=== PATIENT | female | born 1970 | race Caucasian/White ===

== ENCOUNTER 2018-03-25 09:51 | Emergency (ER) | payer BC ==
[~2018-03-25] VITALS: Ht 167.6 cm; Wt 81.7 kg
--- OUTSIDE RECORDS SUMMARY | ~2018-03-25 | XMS | Encounter Summary ---
Demographics + + + | Address | [address] | | | [place] [address] | + + + | Home Phone | | + + + | Preferred Language | Unknown | + + + | Marital Status | Single | + + + | Caodaism Affiliation | Unknown | + + + | Race | Unknown | + + + | Ethnic Group | Unknown | + + + Author + + + | Author | [facility] [employer] [facility] | + + + | Organization | [facility] [employer] [facility] | + + + | Address | Unknown | + + + | Phone | Unavailable | + + + Support + + +---------+ + | Name | Relationship | Address | Phone | + + +---------+ + | Maggie Mckenna | ECON | Unknown | | + + +---------+ + Care Team Providers + +------+ + | Care Senior Analytic Consultant Name | Role | Phone | + +------+ + | Miguelangel Good | PCP | | + +------+ + Encounter Details +--------+ + + + + | Date | Type | Department | Care Team | Description | +--------+ + + + + | 01/26/ | Telephone | [facility] | Boris Pennington MD | | | 2018 | | Rheumatology [address] | | | | | [address] | [place] [address] | | | | | [place] [address] | [phone] | | | | | [phone] | | | +--------+ + + + + Social History + +-------+ +--------+------+ | Tobacco Use | Types | Packs/Day | Years | Date | | | | | Used | | + +-------+ +--------+------+ | Former Smoker | | | | | + +-------+ +--------+------+ + +---+---+---+ | Smokeless Tobacco: | | | | | Never Used | | | | + +---+---+---+ + + +---------+ + | Alcohol Use | Drinks/We | oz/Week | Comments | | | ek | | | + + +---------+ + | No | | | | + + +---------+ + + + + | Sex Assigned at | Date Recorded | | | | + + + | Not on file | | + + + as of this encounter Plan of Treatment +--------+---------+ + + + | Date | Type | Specialty | Care Team | Description | +--------+---------+ + + + | 05/01/ | Office | Rheumatology | Sergio Fish, | | | 2017 | Visit | | [address] | | | | | | [address] | | | | | | [place] [address] | | | | | | [phone] | | | | | | | | +--------+---------+ + + + as of this encounter Visit Diagnoses Not on filein this encounter"
--- OUTSIDE RECORDS SUMMARY | ~2018-03-25 | XMS | Encounter Summary ---
Demographics + + + | Address | [address] | | | [place] [address] | + + + | Home Phone | | + + + | Preferred Language | Unknown | + + + | Marital Status | Single | + + + | Rastafari Affiliation | Unknown | + + + | Race | Unknown | + + + | Ethnic Group | Unknown | + + + Author + + + | Author | [facility] [employer] | + + + | Organization | [facility] [employer] [facility] | + + + | Address | Unknown | + + + | Phone | Unavailable | + + + Support + + +---------+ + | Name | Relationship | Address | Phone | + + +---------+ + | Maggie Mckenna | ECON | Unknown | | + + +---------+ + Care Team Providers + +------+ + | Care Library Historian Name | Role | Phone | + +------+ + | Miguelangel Good | PCP | | + +------+ + Encounter Details +--------+ + + + + | Date | Type | Department | Care Team | Description | +--------+ + + + + | 02/03/ | Telephone | [facility] | Tanja Jung, | | | 2017 | | Rheumatology [address] | [address] | | | | | [address] | | | | | | [place] [address] | | | | | | [phone] | | | +--------+ + + + [...] | 05/01/ | Office | Rheumatology | Segrio Fish, | | | 2017 | Visit | | [address] | | | | | | [address] [facility] | | | | | | [place] [address] | | | | | | [phone] | | | | | | | | +--------+---------+ + + + as of this encounter Visit Diagnoses Not on filein this encounter"
--- OUTSIDE RECORDS SUMMARY | ~2018-03-25 | XMS | Encounter Summary ---
Demographics + + + | Address | [address] | | | [place] [address] | + + + | Home Phone | | + + + | Preferred Language | Unknown | + + + | Marital Status | Single | + + + | Mu-Ism Affiliation | Unknown | + + + | Race | Unknown | + + + | Ethnic Group | Unknown | + + + Author + + + | Author | [facility] [email or web address] | + + + | Organization | [facility] [employer] [facility] | + + + | Address | Unknown | + + + | Phone | Unavailable | + + + Support + + +---------+ + | Name | Relationship | Address | Phone | + + +---------+ + | Maggie Mckenna | ECON | Unknown | | + + +---------+ + Care Team Providers + +------+ + | Care Windsmith Name | Role | Phone | + +------+ + | Miguelangel Good | PCP | | + +------+ + Encounter Details +--------+ + + + + | Date | Type | Department | Care Team | Description | +--------+ + + + + | 01/26/ | Telephone | [facility] | Boris Pennington MD | | | 2018 | | Rheumatology [address] | [address] | | | | | [address] | [place] [address] | | | | | [place] [address] | [phone] | | | | | [phone] | | | +--------+ + + + [...] | 2017 | Visit | | [address] | | | | | | [address] | | | | | | [place] [address] | | | | | | [phone] | | | | | | | | +--------+---------+ + + + as of this encounter Visit Diagnoses Not on filein this encounter"
--- OUTSIDE RECORDS SUMMARY | ~2018-03-25 | XMS | Clinical Summary ---
Demographics + + + | Address | [address] | | | [place] [address] | + + + | Home Phone | | + + + | Preferred Language | Unknown | + + + | Marital Status | Unknown | + + + | Episcopalian Affiliation | Unknown | + + + | Race | Unknown | + + + | Ethnic Group | Unknown | + + + Author + + + | Author | [facility] | | | [facility] | + + + | Organization | [facility] | | | and [facility] | + + + | Address | Unknown | + + + | Phone | Unavailable | + + + Care Team Providers + +------+ + | Care Merchandising Intern Name | Role | Phone | + +------+ + PP | Unavailable | + +------+ + Allergies Not on File Current Medications Not on file Active Problems Not on file Social History + +-------+ +--------+------+ | Tobacco Use | Types | Packs/Day | Years | Date | | | | | Used | | + +-------+ +--------+------+ | Never Assessed | | | | | + +-------+ +--------+------+ + + + | Sex Assigned at | Date Recorded | | | | + + + | Not on file | | + + + Plan of Treatment + + + + + | Health Maintenance | Due Date | Last Done | Comments | + + + + + | Vaccine: | | | | | Dtap/Tdap/Td (1 - | 9 | | | | Tdap) | | | | + + + + + | Cervical Cancer | | | | | Screening (Pap) | 0 | | | + + + + + | Vaccine: Influenza | | | | | (#1) | 8 | | | + + + + + Results Not on filefrom Last 3 Months"
--- OUTSIDE RECORDS SUMMARY | ~2018-03-25 | XMS | Clinical Summary ---
Demographics + + + | Address | [address] | | | [place] [address] | + + + | Home Phone | | + + + | Preferred Language | Unknown | + + + | Marital Status | Single | + + + | Tenriism Affiliation | Unknown | + + + | Race | Unknown | + + + | Ethnic Group | Unknown | + + + Author + + + | Author | [facility] | + + + | Organization | [facility] | + + + | Address | Unknown | + + + | Phone | Unavailable | + + + Support + + +---------+ + | Name | Relationship | Address | Phone | + + +---------+ + | Maggie Mckenna | ECON | Unknown | | + + +---------+ + Care Team Providers + +------+ + | Care Track Oiler Name | Role | Phone | + +------+ + | Miguelangel GoodP | PP | | + +------+ + Allergies + + + + + + | Active Allergy | Reactions | Severity | Noted | Comments | | | | | Date | | + + + + + + | Penicillins | Other (See Comments) | | 12/20/19 | abstracted | | | | | 11 | | + + + + + + | Sulfa Antibiotics | Other (See Comments) | | 12/20/19 | abstracted | | | | | 11 | | + + + + + + Current Medications + + +---------+---------+------+------+-------+ | Prescription | Sig. | Disp. | Refills | Star | End | Statu | | | | | | t | Date | s | | | | | | Date | | | + + +---------+---------+------+------+-------+ | levothyroxine | Take 137 mcg by | | | | | Activ | | (SYNTHROID, | mouth daily. | | | | | e | | LEVOTHROID) 137 MCG | | | | | | | | tablet | | | | | | | + + +---------+---------+------+------+-------+ | | Take by mouth. | | | | | Activ | | Acetaminophen-Codein | | | | | | e | | e (TYLENOL WITH | | | | | | | | CODEINE #3 PO) | | | | | | | + + +---------+---------+------+------+-------+ | ferrous sulfate, | Take 65 mg of iron | | | | | Activ | | 65 FE, 324 (65 Fe) | by mouth 3 (three) | | | | | e | | MG EC tablet | times daily with | | | | | | | | meals. | | | | | | + + +---------+---------+------+------+-------+ | Multiple | Take 1 tablet by | | | | | Activ | | Vitamins-Minerals | mouth daily. | | | | | e | | (MULTIVITAMIN WITH | | | | | | | | MINERALS) tablet | | | | | | | + + +---------+---------+------+------+-------+ | cholecalciferol | Take 1 capsule by | 30 | 11 | /2 | 07/ | Activ | | ([facility] VIT D 5000 | mouth daily. | capsule | | /20 | 6 | e | | HIGH-POTENCY) 5000 | | | | 18 | 19 | | | units capsule | | | | | | | + + +---------+---------+------+------+-------+ Active Problems + + + | Problem | Noted Date | + + + | Intertrigo | 01/25/2018 | + + + | Breast hypertrophy | 01/25/2018 | + + + | Depression | 01/25/2018 | + + + | Saddle anesthesia | 11/28/2013 | + + + | Scoliosis | 11/28/2013 | + + + | Urinary urgency | 11/28/2013 | + + + | Urinary leakage | 11/28/2013 | + + + | Granulation tissue of vaginal cuff | 11/28/2013 | + + + | Lipoma | 11/28/2013 | + + + Encounters +--------+ + + + + | Date | Type | Specialty | Care Team | Description | +--------+ + + + + | 02/03/ | Telephone | | Tanja Jung, | | | 2017 | | | SUBSTATION DESIGN DRAFTSPERSON | | +--------+ + + + + | 01/26/ | Telephone | | Boris Pennington MD | | | 2017 | | | | | +--------+ + + + + | 01/25/ | Office | | Boris Pennington MD | Arthralgia, | | 2018 | Visit | | | unspecified joint | | | | | | (Primary Dx) | +--------+ + + + + from Last 3 Months Immunizations + + + + | Name | Dates Previously Given | Next Due | + + + + | Influenza, PF | 08/19/2016 | | | Trivalent | | | + + + + | Pneumococcal | 08/19/2016 | | | Polysaccharide | | | | 23-valent | | | + + + + Family History + + +------+ + | Medical History | Relation | Name | Comments | + + +------+ + | Arthritis | Other | | | + + +------+ + | Asthma | Other | | | + + +------+ + | Depression | Other | | | + + +------+ + | Diabetes | Other | | | + + +------+ + + +------+--------+ + | Relation | Name | Status | Comments | + +------+--------+ + | Other | | | | + +------+--------+ + Social History + +-------+ +--------+------+ | [...] on file | | + + + Last Filed Vital Signs + + + + | Vital Sign | Reading | Time Taken | + + + + | Blood Pressure | 134/90 | 01/25/2018 1:59 PM PDT | + + + + | Pulse | 80 | 01/25/2018 1:59 PM PDT | + + + + | Temperature | 36.1 C (96.9 F) | 01/25/2018 1:59 PM PDT | + + + + | Respiratory Rate | 22 | 11/30/2014 4:05 PM PDT | + + + + | Oxygen Saturation | 96% | 11/30/2014 4:05 PM PDT | + + + + | Inhaled Oxygen | - | - | | Concentration | | | + + + + | Weight | 125.3 kg (276 lb 3.2 | 01/25/2018 1:59 PM PDT | | | oz) | | + + + + | Height | 180.3 cm (5' 11") | 01/25/2018 1:59 PM PDT | + + + + | Body Mass Index | 38.52 | 01/25/2018 1:59 PM PDT | + + + + Plan of Treatment +--------+---------+ + + + | Date | Type | Specialty | Care Team | Description | +--------+---------+ + + + | 05/01/ | Office | | Sergio Fish, | | | 2017 | Visit | | [address] | | | | | [facility] | | | | | | [place] [address] | | | | | | [phone] | | | | | | | | +--------+---------+ + + + + + + + + | Health [...] + + | Vaccine: Influenza | | 08/19/2016 | | | (#1) | 8 | | | + + + + + Procedures + +--------+ + + + | Procedure Name | Priori | Date/Time | Associated Diagnosis | Comments | | | ty | | | | + +--------+ + + + | LUPUS INHIBITOR | Routin | 01/25/2018 | Arthralgia, | Results for this | | SCREEN | e | 2:47 PM | unspecified joint | procedure are in the | | | | PDT | | results section. | + +--------+ + + + | SEDIMENTATION RATE, | Routin | 01/25/2018 | Arthralgia, | Results for this | | AUTOMATED | e | 2:46 PM | unspecified joint | procedure are in the | | | | PDT | | results section. | + +--------+ + + + | C-REACTIVE PROTEIN | Routin | 01/25/2018 | Arthralgia, | Results for this | | | e | 2:46 PM | unspecified joint | procedure are in the | | | | PDT | | results section. | + +--------+ + + + | CCP ANTIBODIES IGG | Routin | 01/25/2018 | Arthralgia, | Results for this | | IGA | e | 2:46 PM | unspecified joint | procedure are in the | | | | PDT | | results section. | + +--------+ + + + | RHEUMATOID FACTOR | Routin | 01/25/2018 | Arthralgia, | Results for this | | | e | 2:46 PM | unspecified joint | procedure are in the | | | | PDT | | results section. | + +--------+ + + + | BETA 2 GLYPROTEIN 1 | Routin | 01/25/2018 | Arthralgia, | Results for this | | IGG/IGM | e | 2:46 PM | unspecified joint | procedure are in the | | | | PDT | | results section. | + +--------+ + + + | CARDIOLIPIN ANTIBODY | Routin | 01/25/2018 | Arthralgia, | Results for this | | | e | 2:46 PM | unspecified joint | procedure are in the | | | | PDT | | results section. | + +--------+ + + + | VITAMIN D 25 HYDROXY | Routin | 01/25/2018 | Arthralgia, | Results for this | | | e | 2:46 PM | unspecified joint | procedure are in the | | | | PDT | | results section. | + +--------+ + + + | TSH | Routin | 01/25/2018 | Arthralgia, | Results for this | | | e | 2:46 PM | unspecified joint | procedure are in the | | | | PDT | | results section. | + +--------+ + + + | CK | Routin | 01/25/2018 | Arthralgia, | Results for this | | | e | 2:46 PM | unspecified joint | procedure are in the | | | | PDT | | results section. | + +--------+ + + + | ANTI-DNA ANTIBODY, | Routin | 01/25/2018 | Arthralgia, | Results for this | | DOUBLE-STRANDED | e | 2:46 PM | unspecified joint | procedure are in the | | | | PDT | | results section. | + +--------+ + + + | SUPERVISOR FABRICATION AUTOANTIBODY | Routin | 01/25/2018 | Arthralgia, | Results for this | | | e | 2:46 PM | unspecified joint | procedure are in the | | | | PDT | | results section. | + +--------+ + + + | CENTROMERE B AUTOAB | Routin | 01/25/2018 | Arthralgia, | Results for this | | | e | 2:46 PM | unspecified joint | procedure are in the | | | | PDT | | results section. | + +--------+ + + + | ANTI-GIBBS ANTIBODY | Routin | 01/25/2018 | Arthralgia, | Results for this | | | e | 2:46 PM | unspecified joint | procedure are in the | | | | PDT | | results section. | + +--------+ + + + | LEANNA TITER | Routin | 01/25/2018 | Arthralgia, | Results for this | | | e | 2:46 PM | unspecified joint | procedure are in the | | | | PDT | | results section. | + +--------+ + + + | DIRECT ANTIGLOBULIN | Routin | 01/25/2018 | Arthralgia, | Results for this | | TEST | e | 2:44 PM | unspecified joint | procedure are in the | | | | PDT | | results section. | + +--------+ + + + from Last 3 Months Results Lupus Inhibitor Screen (01/25/2018 2:47 PM) + + + + + | Component | Value | Ref Range | Performed At | + + + + + | PROTIME,PATIENT | 10.0Comment: Reference | s | [facility] | | | range: 9.6 to 11.5 | | | + + + + + | PT,PATIENT/CTL MIX | 10.1Comment: Reference | s | [facility] | | | range: 9.6 to 11.5 | | | + + + + + | 1 HR INCUB PT 1:1 CAMP TENDER | NIYComment: Testing Not | s | [facility] | | | Indicated | | | + + + + + | THROMBIN | 16.1Comment: Reference | s | [facility] | | TIME,PATIENT | range: 0.0 to 23.0 | | | + + + + + | PTT LA | 31.3Comment: Reference | s | [facility] | | | range: 0.0 to 51.9 | | | + + + + + | DRVVT | 26.3Comment: Reference | s | [facility] | | | range: 0.0 to 47.0 | | | + + + + + | LUPUS REFLEX INTERP | Comment:Comment: No | | [facility] | | | lupus anticoagulant was | | | | | detected. | | | + + + + + + + | Specimen | + + | Blood | + + + + + + + | Performing | Address | City/State/Zipcode | Phone Number | | Organization | | | | + + + + + | [facility] | [address] | [place] [address] | | + + + + + SUPERVISOR FABRICATION autoantibody (01/25/2018 2:46 PM) + + + + + | Component | Value | Ref Range | Performed At | + + + + + | SUPERVISOR FABRICATION AUTOANTIBODY | 5.0 (H)Comment: | AI | [facility] | | | Reference range: 0.0 to | | | | | 0.9 | | | + + + + + + + + + + | Performing | Address | City/State/Zipcode | Phone Number | | Organization | | | | + + + + + | [facility] | [address] | [place] [address] | | + + + + + Centromere B auto AB (01/25/2018 2:46 PM) + + + + + | Component | Value | Ref Range | Performed At | + + + + + | CENTROMERE B | <0.2Comment: Reference | AI | [facility] | | AUTOANTIBODY | range: 0.0 to 0.9 | | | + + + + + + + + + + | Performing | Address | City/State/Zipcode | Phone Number | | Organization | | | | + + + + + | [facility] | [address] | [place] [address] | | + + + + + SM autoantibody(anti-gibbs antibody) (01/25/2018 2:46 PM) + + + + + | Component | Value | Ref Range | Performed At | + + + + + | SM AUTOANTIBODY | <0.2Comment: Reference | AI | [facility] | | | range: 0.0 to 0.9 | | | + + + + + + + + + + | Performing | Address | City/State/Zipcode | Phone Number | | Organization | | | | + + + + + | [facility] | [address] | [place] [address] | | + + + + + Cyclic Peptide IGG (01/25/2018 2:46 PM) + + + + + | Component | Value | Ref Range | Performed At | + + + + + | CCP ANTIBODIES IGG | 13Comment: Reference | | [facility] | | IGA | range: 0 to | | | | | 19 | | | | | | | | | | | | | | | Negative | | | | | | | | | | <20 | | | | | | | | | | Weak | | | | | positive 20 - | | | | | | | | | | 39 | | | | | | | | | | Moderate | | | | | positive 40 - | | | | | 59 | | | | | | | | | | Strong | | | | | positive | | | | | >59 | | | + + + + + + + | Specimen | + + | Blood | + + + + + + + | Performing | Address | City/State/Zipcode | Phone Number | | Organization | | | | + + + + + | [facility] | [address] | [place] [address] | | + + + + + LEANNA Ab titer by IFA (01/25/2018 2:46 PM) + + + + + | Component | Value | Ref Range | Performed At | + + + + + | LEANNA | NegativeComment: | | [facility] | | | | | | | | | | | | | | | | | | Negative | | | | | <1:80 | | | | | | | | | | | | | | | Borderline 1:80 | | | | | | | | | | | | | | | P | | | | | ositive >1:80 | | | + + + + + + + | Specimen | + + | Blood | + + + + + + + | Performing | Address | City/State/Zipcode | Phone Number | | Organization | | | | + + + + + | [facility] | [address] [facility] | [place] [address] | | + + + + + DsDNA autoantibody (01/25/2018 2:46 PM) + + + + + | Component | Value | Ref Range | Performed At | + + + + + | DSDNA AUTOANTIBODY | <1Comment: Reference | [iU]/mL | [facility] | | | range: 0 to | | | | | 9 | | | | | | | | | | Neg | | | | | ative <5 | | | | | | | | | | | | | | | Equivocal | | | | | 5 - | | | | | 9 | | | | | | | | | | Pos | | | | | itive >9 | | | + + + + + + + | Specimen | + + | Blood | + + + + + + + | Performing | Address | City/State/Zipcode | Phone Number | | Organization | | | | + + + + + | [facility] | [address] | [place] [address] | | + + + + + Beta 2 Glyprotein 1 IgG/IgM (01/25/2018 2:46 PM) + + + + + | Component | Value | Ref Range | Performed At | + + + + + | BETA 2 GLYCOPRO 1 | <9Comment: Reference | | [facility] | | IGG | range: 0 to 20The | | | | | reference interval | | | | | reflects a 3SD or 99th | | | | | percentile | | | | | interval,which is | | | | | thought to represent a | | | | | potentially clinically | | | | | significantresult in | | | | | accordance with the | | | | | International Consensus | | | | | Statement onthe | | | | | classification criteria | | | | | for definitive | | | | | antiphospholipidsyndrome | | | | | (APS). J Thromb Haem | | | | | 2006;4:295-306. | | | + + + + + | Beta-2 Glyco 1 IgM | 23Comment: Reference | | [facility] | | | range: 0 to 32The | | | | | reference interval | | | | | reflects a 3SD or 99th | | | | | percentile | | | | | interval,which is | | | | | thought to represent a | | | | | potentially clinically | | | | | significantresult in | | | | | accordance with the | | | | | International Consensus | | | | | Statement onthe | | | | | classification criteria | | | | | for definitive | | | | | antiphospholipidsyndrome | | | | | (APS). J Thromb Haem | | | | | 2006;4:295-306. | | | + + + + + + + | Specimen | + + | Blood | + + + + + + + | Performing | Address | City/State/Zipcode | Phone Number | | Organization | | | | + + + + + | [facility] | [address] | [place] [address] | | + + + + + Vitamin D,25 hydroxy (01/25/2018 2:46 PM) + + + + + | Component | Value | Ref Range | Performed At | + + + + + | VITAMIN D,25 HYDROXY | 13 (L)Comment: <20 | 30 - 150 ng/mL | [facility] | | | ng/mL Suggest | | LAB[facility] | | | s deficiency of 25-OH | | | | | Vitamin D. 20-29 | | | | | ng/mL Suggests a | | | | | relative insufficiency | | | | | of 25-OH Vitamin D. | | | | | 30-150 ng/mL | | | | | Suggests a sufficient | | | | | level of 25-OH Vitamin | | | | | D. >150 ng/mL | | | | | Toxic level of 25-OH | | | | | Vitamin D. Blood levels | | | | | of 25 Hydroxy Vitamin D | | | | | vary with the extent of | | | | | sun exposure. Values | | | | | tend to be highest in | | | | | late summer and lowest | | | | | in the spring. Values | | | | | also tend to decrease | | | | | with age, due to | | | | | decreased precursor | | | | | synthesis in the skin. | | | + + + + + + + | Specimen | + + | Blood | + + + + + + + | Performing | Address | City/State/Zipcode | Phone Number | | Organization | | | | + + + + + | [facility] | [address] | [place] [address] | [phone] | | LABORATORY | [address] | | | + + + + + Anti cardiolipin Ab (01/25/2018 2:46 PM) + + + + + | Component | Value | Ref Range | Performed At | + + + + + | ANTI CARDIOLIPIN IGG | <9Comment: Reference | [GPL'U]/mL | [facility] | | | range: 0 to | | | | | 14 | | | | | | | | | | | | | | | Negative: | | | | | <15 | | | | | | | | | | | | | | | Indeterminate: | | | | | 15 - | | | | | 20 | | | | | | | | | | Low-Med Positive: >20 | | | | | - | | | | | 80 | | | | | | | | | | High | | | | | Positive: | | | | | >80 | | | + + + + + | CARDIOLIPIN AB,IGM | <9Comment: Reference | [MPL'U]/mL | [facility] | | | range: 0 to | | | | | 12 | | | | | | | | | | | | | | | Negative: | | | | | <13 | | | | | | | | | | | | | | | Indeterminate: | | | | | 13 - | | | | | 20 | | | | | | | | | | Low-Med Positive: >20 | | | | | - | | | | | 80 | | | | | | | | | | High | | | | | Positive: | | | | | >80 | | | + + + + + + + | Specimen | + + | Blood | + + + + + + + | Performing | Address | City/State/Zipcode | Phone Number | | Organization | | | | + + + + + | [facility] | [address] | [place] [address] | | + + + + + Sedimentation rate, automated (01/25/2018 2:46 PM) + +-------+ + + | Component | Value | Ref Range | Performed At | + +-------+ + + | ESR | 4 | 0 - 20 mm/h | [facility] | | | | | LAB[facility] | + +-------+ + + + + | Specimen | + + | Blood | + + + + + + + | Performing | Address | City/State/Zipcode | Phone Number | | Organization | | | | + + + + + | [facility] | [address] | [place] [address] | [phone] | | LABORATORY | [address] | | | + + + + + RA titer (01/25/2018 2:46 PM) + +-------+ + + | Component | Value | Ref Range | Performed At | + +-------+ + + | RA TITER | <10 | <14 [iU]/mL | [facility] | | | | | LABORATORY | + +-------+ + + + + | Specimen | + + | Blood | + + + + + + + | Performing | Address | City/State/Zipcode | Phone Number | | Organization | | | | + + + + + | [facility] | [address] | [place] [address] | [phone] | | LABORATORY | [address] | | | + + + + + C-reactive protein (01/25/2018 2:46 PM) + +-------+ + + | Component | Value | Ref Range | Performed At | + +-------+ + + | CRP | 0.3 | <0.5 mg/dL | [facility] | | | | | LABORATORY | + +-------+ + + + + | Specimen | + + | Blood | + + + + + + + | Performing | Address | City/State/Zipcode | Phone Number | | Organization | | | | + + + + + | [facility] | [address] | [place] [address] | [phone] | | LABORATORY | [address] | | | + + + + + TSH (01/25/2018 2:46 PM) + + + + + | Component | Value | Ref Range | Performed At | + + + + + | TSH | 13.800 (H) | 0.450 - 5.100 | [facility] | | | | u[iU]/mL | LABORATORY | + + + + + + + | Specimen | + + | Blood | + + + + + + + | Performing | Address | City/State/Zipcode | Phone Number | | Organization | | | | + + + + + | [facility] | [address] | [place] [address] | [phone] | | LABORATORY | [address] | | | + + + + + CPK (01/25/2018 2:46 PM) + +-------+ + + | Component | Value | Ref Range | Performed At | + +-------+ + + | CPK | 137 | 30 - 240 U/L | [facility] | | | | | LABORATORY | + +-------+ + + + + | Specimen | + + | Blood | + + + + + + + | Performing | Address | City/State/Zipcode | Phone Number | | Organization | | | | + + + + + | [facility] | [address] | [place] [address] | [phone] | | LABORATORY | [address] | | | + + + + + Direct antiglobulin test (01/25/2018 2:44 PM) + + + + + | Component | Value | Ref Range | Performed At | + + + + + | ELISHA,POLY (DBS) | NEGATIVE | | [facility] | + + + + + + + | Specimen | + + | Blood | + + + + + + + | Performing | Address | City/State/Zipcode | Phone Number | | Organization | | | | + + + + + | [facility] | [address] | [place] [address] | | + + + + + from Last 3 Months Insurance +---------+--------+ +------+-------+ + | Payer | Benefi | Subscriber | Type | Phone | Address | | | t Plan | ID | | | | | | / | | | | | | | Group | | | | | +---------+--------+ +------+-------+ + | PREMERA | PREMER | [id number] | | | [address] [address] | | | A | [address] | | | [place], [place] | | | [employer] | | | | [address] | | | [employer] | | | | | +---------+--------+ +------+-------+ + + +--------+ +--------+ + + | Guarantor Name | Accoun | Relation to | Date | Phone | Billing Address | | | t Type | Patient | of | | | | | | | | | | + +--------+ +--------+ + + | DOUG ANDRADE | Person | Self [birth year] Home: | [address] | | A | al/Fam | | 1971 | [phone] | [place], | | | [place] | | | [phone] | [place] [address] | + +--------+ +--------+ + +
--- OUTSIDE RECORDS SUMMARY | ~2018-03-25 | XMS | Encounter Summary ---
Demographics + + + | Address | [address] | | | [place] [address] | + + + | Home Phone | | + + + | Preferred Language | Unknown | + + + | Marital Status | Single | + + + | Adventism Affiliation | Unknown | + + + | Race | Unknown | + + + | Ethnic Group | Unknown | + + + Author + + + | Author | [facility] | + + + | Organization | [facility] | + + + | Address | Unknown | + + + | Phone | Unavailable | + + + Support + + +---------+ + | Name | Relationship | Address | Phone | + + +---------+ + | Maggie Mckenna | ECON | Unknown | | + + +---------+ + Care Team Providers + +------+ + | Care Health Care Coordinator Name | Role | Phone | + +------+ + | Miguelangel Good EDGER SAW OPERATOR | PCP | | + +------+ + Reason for Visit + + + | Reason | Comments | + + + | Rheumatoid Arthritis | New Consult | + + + Consult and Treat (Routine) +--------+--------+ + + + + | Status | Reason | Specialty | Diagnoses / | Referred By | Referred To | | | | | Procedures | Contact | Contact | +--------+--------+ + + + + | Closed | | Rheumatology | Diagnoses | Vini Good | | | | | Other | Miguelangel Carpenter, | Rheumatology | | | | | specified | EDGER SAW OPERATOR [id number] | | | | | abnormal | [address], | [address] | | | | | immunologica | [address] | [place] | | | | | l findings | [place], | [address] | | | | | in serum | [place] [address] | Phone: | | | | | | Phone: | [phone] | | | | | | [phone] | Fax: | | | | | | Fax: | [phone] | | | | | | [phone] | | +--------+--------+ + + + + Encounter Details +--------+---------+ + + + | Date | Type | Department | Care Team | Description | +--------+---------+ + + + | 01/25/ | Office | [facility] | Boris Pennington MD | Arthralgia, | | 2018 | Visit | Rheumatology [address] | unspecified joint | | | | [address] | [place] [address] | (Primary Dx) | | | | [place] [address] | [phone] | | | | | [phone] | | | +--------+---------+ + + + Social History + +-------+ [...] + + + as of this encounter Last Filed Vital Signs + + + [...] + + + | Respiratory Rate | - | - | + + + + | Oxygen Saturation | - | - | + + + + | Inhaled [...] PM PDT | + + + + in this encounter Instructions Patient Instructions - Boris Pennington MD - 01/25/2018 2:00 PM PDTWe hope that you have ex perienced exceptional care today and that you found our service to be courteous and helpful. If you have any questions, you can send us a message/request using [employer] or call our [facility] deniz at [phone], Tanja GLASER extension [phone]. If you are unable to reach a nurse during clinic hours, please leave a detailed message. We check our messages often and return calls in a timely manner during clinic hours. Orders for labs or imaging: Please remember that Dr. Pennington will only call you if something is concerning AND needs to be addressed, otherwise all results will be discussed at your nex t office visit. You can also review your results on [employer]. If you are experiencing an emergency, please call 911 Please read the package instructions for medications very carefully and call if any concern s, questions Content: Systemic lupus erythematosus Systemic lupus erythematosus, referred to as SLE or lupus, is sometimes called the "great i mitator." Why? Because of its wide range of symptoms, people often confuse lupus with other health problems. Lupus affects mainly the joints, kidneys and skin. It can range from mild to serious. Yet, there is much reason for hope. Improvements in treatment have greatly improved these patient s' quality of life and increased their lifespan. Fast facts ? Lupus affects 10 times as many women as men. ? Treatment depends on the symptoms and their severity. ? Because it is a complex disease, lupus requires treatment by or consultation with a rheum atologist, a doctor who is an expert in treating diseases like lupus. ? People can live well with lupus if they actively work toward good health. What is lupus? Lupus is a chronic (long-term) disease that causes inflammation pain and swelling. It c an affect the skin, joints, kidneys, lungs, nervous system and other organs of the body. Mos t patients feel fatigue and have rashes, arthritis (painful and swollen joints) and fever. Lupus flares vary from mild to serious. Most patients have times when the disease is active , followed by times when the disease is mostly quiet referred to as a remission. What causes lupus? The immune system is the body's defense system. When healthy, it protects the body by makin g antibodies (blood proteins) that attack foreign germs and cancers. With lupus, the immune system misfires. Instead of producing protective antibodies, an autoimmune disease begins an d makes "autoantibodies," which attack the patient's own tissues. Doctors sometimes refer to this as a "loss of self-tolerance." As the attack goes on, other immune cells join the fight. This leads to inflammation and ab normal blood vessels (vasculitis). These antibodies then end up in cells in organs, where th ey damage those tissues. Why this inflammatory response begins is not clear. It most likely results from a mix of in herited tendencies and things in your environment. These include viruses, sunlight and drug allergies. People with lupus may also have an impaired process for clearing old and damaged cells from the body, which causes an abnormal immune response. Who gets lupus? Most often, lupus starts in people in their 20s and 30s. It occurs 10 times more often in w omen than in men. The disease is more common in some ethnic groups, mainly blacks and Asians , and tends to be worse in these groups. This picture shows a malar rash, a red rash on the cheeks and nose. This rash often results from sun exposure. How is lupus diagnosed? Lupus can be hard to detect because it has many symptoms, and they can come on slowly. Symptoms. People with lupus often have features that are not specific to lupus. These inclu de fever, fatigue, weight loss, blood clots and hair loss in spots or around the hairline. T hey may also have heartburn, stomach pain, and poor circulation to the fingers and toes. Pre gnant women can have miscarriages. The [place] has a list of symptoms and other measures that doctors can use as a guide to decide if a patient with symptoms has lupus. If your doctor finds nadia t you have at least four of these problems, and finds no other reason for them, you may have lupus: ? Rashes: ? butterfly-shaped rash over the cheeks referred to as malar rash ? red rash with raised round or oval patches known as discoid rash ? rash on skin exposed to the sun ? Mouth sores: sores in the mouth or nose lasting from a few days to more than a month ? Arthritis: tenderness and swelling lasting for a few weeks in two or more joints ? Lung or heart inflammation: swelling of the tissue lining the lungs (referred to as pleur isy or pleuritis) or the heart (pericarditis), which can cause chest pain when breathing maryjane ply ? Kidney problem: blood or protein in the urine, or tests that suggest poor kidney function ? Neurologic problem: seizures, strokes or psychosis (a mental health problem) ? Abnormal blood tests: ? low blood cell counts: anemia, low white blood cells or low platelets ? positive antinuclear antibody: referred to as LEANNA and present in nearly all patients with lupus ? certain antibodies that show an immune system problem: ztkw-gwuffm-gcmifl DNA (called ant i-dsDNA), anti-Du (referred to as anti-Sm) or antiphospholipid antibodies, or a false-pos itive blood test for syphilis (meaning you do not really have this infection) Lab tests. If your doctor suspects you have lupus from your symptoms, you will need a serie s of blood tests to confirm that you do have the disease. The most important blood screening test measures LEANNA, but you can have LEANNA and not have lupus. Therefore, if you have positive LEANNA, you may need more specific tests to prove the diagnosis. These blood tests include ant ibodies to anti-dsDNA and anti-Sm. The presence of antiphospholipid antibodies can help doctors detect lupus. These antibodies signal a raised risk of certain complications such as miscarriage, difficulties with memory , or blood clots that may lead to stroke or lung injury. Doctors also may measure levels of certain complement proteins (a part of the immune system) in the blood, to help detect the d isease and follow its progress. Lupus is a disease that can lead to inflammation in not just the joints and skin but also m any other organs. These include the kidneys, the tissue lining the lungs (pleura) and heart (pericardium), and the brain. How is lupus treated? There is no cure for lupus and its treatment can be a challenge. However, treatment has imp roved considerably a great deal. Treatment depends on the type of symptoms you have and how serious they are. Patients with muscle or joint pain, fatigue, rashes and other problems that are not dangerous can receive "conservative" treatment. These options include nonsteroidal anti-inflammatory drugs ref erred to as NSAIDs Nonsteroidal anti-inflammatory drugs. NSAIDs decrease swelling, pain and fever. These drugs include ibuprofen (brand names Motrin, Advil) and naproxen (Naprosyn, Aleve). Some of these NSAIDs can cause serious side effects like stomach bleeding or kidney damage. Always check with your doctor before taking any medications that are over the counter (without a prescrip tion) for your lupus. Antimalarial drugs. Patients with lupus also may receive an antimalarial medication such as hydroxychloroquine (Plaquenil). Though these drugs prevent and treat malaria, they also hel p relieve some lupus symptoms, such as fatigue, rashes, joint pain or mouth sores. They also may help prevent abnormal blood clotting. Corticosteroids and immune suppressants. Patients with serious or life-threatening problems such as kidney inflammation, lung or heart involvement, and central nervous system symptoms need more "aggressive" (stronger) treatment. This may include high-dose corticosteroids suc h as prednisone (Deltasone and others) and drugs that suppress the immune system. Immune sup pressants include azathioprine (Imuran), cyclophosphamide (Cytoxan), and cyclosporine (Neora l, Sandimmune). Recently mycophenolate (CellCept) has been used to treat severe kidney disea se in lupus referred to as lupus nephritis. Biologics. New treatment options include drugs called biologics that are already approved f or treatment of other rheumatic diseases such as rheumatoid arthritis. Examples are rituxima b (Rituxan) and abatacept (Orencia). These two drugs are not approved for treatment of lupus . In 2010, though, the FDA approved a biologic, belimumab (Benlysta), for treatment of mild to moderate (medium severe) SLE. It is the first new drug approved for lupus since 1955. This exciting treatment advance occurred thanks to research studies in patients called cl inical trials. It provides hope that some of the other drugs that researchers are testing in patients will help lupus. It also underscores the need for patients with lupus to take part in studies. Combination treatment. Health care providers may combine a few medications to control lupus and prevent tissue damage. Each treatment has risks and benefits. Most immune-suppressing medications, for instance, m ay cause major side effects. Side effects of these drugs may include a raised risk of infect ions as well as nausea, vomiting, hair loss, diarrhea, high blood pressure and osteoporosis (weak bones). Rheumatologists may lower the dose of a drug or stop a medicine because of brit e effects or when the disease goes into remission. As a result, it is important to receive c areful and frequent health exams and lab tests to track your symptoms and change your treatm ent as needed. Broader health impact of lupus Even when it is not active, lupus may cause problems later. Some of these problems can be f atal. One of these problems is atherosclerosis (clogging of the arteries) that may develop i n younger women or may be more severe than usual. This problem raises the risk of heart abdirizak cks, heart failure and strokes. Thus, it is vital that patients with lupus lower their other risk factors for heart disease, such as smoking, high blood pressure and high cholesterol. It is also important to have as active a lifestyle as possible. Lupus may also cause kidney disease, which can advance to kidney failure and need dialysis. You can help prevent these serious problems by seeking treatment at the first signs of kidn ey disease. These signs include: ? High blood pressure ? Swollen feet and hands ? Puffiness around your eyes ? Changes in urination (blood or foam in the urine, going to the bathroom more often at nig ht, or pain or trouble urinating) Living with lupus Treatment of lupus has improved, and people with the disease are living longer. But, it is still a chronic disease that can limit activities. Quality of life can suffer because of sym ptoms like fatigue and joint pain. Furthermore, some people do not respond to some treatment s. Also, you may not be able to predict when lupus will flare. Such problems can lead to dep ression, anger, loss of hope or loss of the will to keep fighting. The best way to control lupus is to follow these tips. ? Form a support system. A good doctor-patient relationship and support from family and fri ends can help you cope with this chronic and often unpredictable illness. ? Get involved in your care. Take all medications as your doctor prescribed, and visit your doctor often. Learn as much as you can about lupus and your medications, and what kind of p rogress to expect. ? Stay active. Exercise helps keep joints flexible and may prevent heart disease and stroke s. This does not mean overdoing it. Switch off doing light to moderate exercise with times o f rest. ? Avoid excess sun exposure. Sunlight can cause a lupus rash to flare and may even trigger a serious flare of the disease itself. When outdoors on a ruben day, wear protective clothin g (long sleeves, a big-brimmed hat) and use lots of sunscreen. . If you are a young woman with lupus and wish to have a baby, carefully plan your . With your doctor's guidance, time your for when your lupus activity is low. While , avoid medications that can harm your baby. These include cyclophospham ellie, cyclosporine, and mycophenolate mofetil. If you must take any of these medicines, or yo ur disease is very active, use control. Estrogen. Rheumatologists have long been concerned that the female hormone estrogen or brandan tment with estrogen may cause or worsen lupus. Recent research showed that estrogen therapy can trigger some mild or moderate flares of lupus, but does not cause symptoms to get much w orse. Yet, estrogen can raise the risk of blood clots. Thus, you should not take estrogen if your blood tests show antiphospholipid antibodies (meaning you already have a high risk of blood clots). The best way to control lupus is to get involved in your care. Take all medications as your doctor prescribed, and visit your physician often. Learn as much as you can about lupus and your medications. Points to remember Most people with lupus can live normal lives. To prevent serious problems, you should see y our docket clerk often. This lets your doctor keep track of your disease and change your t reatment as needed. If you do not live near a docket clerk, you may need to have your [facility] doctor manage your lupus with the help of a docket clerk. The role of a docket clerk in the treatment of lupus Lupus is a complex disease. As experts in diagnosing and treating autoimmune diseases such as lupus, rheumatologists can best advise patients about treatment options. For more information The [employer] has compiled this list to give you a starting point fo r your own additional research. The ACR does not endorse or maintain these websites, and is not responsible for any information or claims provided on them. It is always best to talk wi th your docket clerk for more information and before making any decisions about your care. The Arthritis Foundation www.arthritis.org The ACR's Lupus Initiative www.thelupusinitiative.org The Lupus [employer] of [place] www.lupus.org Lupus Research [place] www.LupusResearchInstitute.org National [place] of Arthritis and Musculoskeletal and Skin Diseases www.niams.nih.gov/Health_Info/Lupus/default.asp Updated August 2012 Written by Denise Hewitt MD, and Jaret Garzon MD, and reviewed by the [employer] Communications and Marketing Committee. This patient fact sheet is provided for general education only. Individuals should consult a qualified health care provider for professional medical advice, diagnosis and treatment of a medical or health condition 2012 [employer] Hydroxychloroquine (Plaquenil) Description Hydroxychloroquine (Plaquenil) is considered a disease-modifying anti-rheumatic drug (DMARD ) because it can decrease the pain and swelling of arthritis, and it may prevent joint damag e and reduce the risk of long-term disability. Fast Facts ? Hydroxychloroquine often is used for mild rheumatoid arthritis or in combination with oth er drugs for more severe disease. ? Hydroxychloroquine is commonly used to manage multiple complications of lupus and connect oma tissue disorders. ? Hydroxychloroquine is a relatively safe medication, though monitoring by an ophthalmologi st is recommended while taking this drug. Uses Hydroxychloroquine is in a class of medications that was first used to prevent and treat ma laria. Today it is used to treat rheumatoid arthritis, some symptoms of lupus, juvenile rheu matoid arthritis, and other autoimmune diseases, though these diseases are not caused by mal aria parasites. How it works It is not clear why hydroxychloroquine is effective at treating autoimmune diseases. It is believed that hydroxychloroquine interferes with communication of cells in the immune system . Dosing Hydroxychloroquine generally is given to adults in doses of 200 mg or 400 mg per day. In so me cases, higher doses can be used. Time to effect Symptoms can start to improve in 1-2 months, but it may take up to 6 months before full mayela efits of this medication are experienced. Side effects Hydroxychloroquine typically is very well tolerated, and serious side effects are rare. The most common side effects are nausea and diarrhea, which often improve with time or by takin g the medication with food. Less common side effects include skin rashes, changes in skin pi gment (such as darkening or dark spots) or hair changes (bleaching or thinning of hair), and weakness. Rarely, hydroxychloroquine can lead to anemia in some individuals. In rare cases, hydroxychloroquine has caused visual changes or loss of vision, but such vis ion problems are more likely to occur in individuals taking high doses for many years, in pe rsons 60 years or older, or in those with significant kidney disease. The dose used today is lower than the one originally used to treat arthritis or malaria. At the current recommende d dose, development of visual problems while taking this medication is extremely unusual. Points to remember Although vision problems and loss of sight while taking hydroxychloroquine for the treatmen t of lupus or arthritis are very rare, notify your doctor if you notice any changes in your vision. Your doctor also may suggest regular eye exams while taking this medication. Visual changes experienced by the patient early on or seen early during regular eye exams usually i mprove after stopping the medication. If you are or are considering having a child, discuss this with your doctor before taking this medication. Although hydroxychloroquine use might be safe during , any medication taken during should be discussed with a doctor. Drug interactions Although there are few drug interactions with hydroxychloroquine, to be safe be sure to tel l your doctor about all of the medications you are taking, including uhjy-url-lnrxqpb drugs and natural remedies. Information to Discuss with Your Primary Care Physician and other Specialists Be sure to notify your other physicians that you are taking this drug. This drug does not h ave a strong effect on the immune system, so vaccines recommended by other physicians are ge nerally acceptable. Be sure to notify your hairspring staker that you are taking this medicine so you can have the correct visual screening tests. For more information The [employer] has compiled this list to give you a starting point fo r your own additional research. The ACR does not endorse or maintain these Web sites, and is not responsible for any information or claims provided on them. It is always best to talk w ith your docket clerk for more information and before making any decisions about your care . National Institutes of Health: Medline Plus www.nlm.nih.gov/medlineplus/druginfo/meds/c997024.html ACR Position Statement on screening for hydroxychloroquine retinopathy www.rheumatology.org/practice/clinical/position/hydroxy.pdf L[employer]us [employer] [place] on Anti-Malarials in Lupus www.lupus.org/webmodules/webarticlesnet/templates/new_aboutaffects.aspx?articleid=87&zoneid =17 Updated October 2011 Written by Tim Montero MD, and reviewed by the [employer] Communi cations and Marketing Committee. This patient fact sheet is provided for general education only. Individuals should consult a qualified health care provider for professional medical advice, diagnosis and treatment of a medical or health condition. 2012 [employer] in this encounter Progress Notes Boris Pennington MD - 01/25/2018 2:00 PM PDTFormatting of this note may be different from t joselin original. The patient was seen in rheumatology clinic today CHIEF COMPLAINT: Finger swelling and pain. HPI: A 47-year-old female presenting with complaint of finger swelling. 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 Patient says this has not recurrence since many years now. Said that her right jason t third toe does swell up occasionally and subsides on its own. Denies any psoriasis. Glen es any GI problems. No exacerbating or alleviating factors. Swelling subsides on its own. No onycholysis. Has chronic neck and back pain which is not related to rest. Denies any psoriasis, denies any dactylitis, denies any bowel problems. The patient does no t have any history of nails falling off (onycholysis), and no vision problems( uveitis). Den ies any sexually transmitted diseases or gastrointestinal infections preceding the arthritis symptoms. Denies any history suggestive of inflammatory low back pain. Back pain is not worsened with rest, does not improve with activity and does not wake the p atient up from sleep Denies any buttock pain No history of dactylitis, uveitis, diarrhea, urethritis, inflammatory bowel disease, psoria sis Pain does not improve dramatically with NSAIDs Has had 8 right knee surgeries Is very active physically and does a lot of biking Occasionally she has a non-photosensitive skin rash. Denies any kidney problems. The patien t denies any episodes of serositis or pericarditis. Denies any bone marrow/blood problems th at she is aware of. No history of seizures or psychiatric problems. No history of spontaneou s abortions/ loss. No recurrent fevers/chills. The patient denies having recurrent oral sores. No dry eyes and mouth. No chest pains/serositis. No dyspnea on exertion. No history of raynaud's type symptoms. No history of blood clots. Past Medical History Diagnosis Date Anxiety Asthma Disorder of thyroid H/O seasonal allergies Hyperglycemia Scoliosis Type 2 diabetes mellitus (HCC) anxiety asthma scoliosis Depression Diabetes, Type 1 Thyroid Disorder ARNOLD-CHIARI MALFORMATION Other inactive problems 1) Intertrigo (ICD-695.89) 2) Back Pain (ICD-724.1) 3) Neck Pain (ICD-723.1) 4) Shoulder Pain (ICD-719.41) 5) Breast Hypertrophy (ICD-611.1) 6) Fh Diabetes (ICD-V18.0) 7) Fh Depression (ICD-V17.0) 8) Family History of Asthma (ICD-V17.5) Past Surgical History Procedure Laterality Date HYSTERECTOMY KNEE SURGERY Right TONSILLECTOMY Patient Active Problem List Diagnosis Saddle anesthesia Scoliosis Urinary urgency Urinary leakage Granulation tissue of vaginal cuff Lipoma Family History: Reviewed history from 09/21/2010 and no changes required: Family History of Arthritis Family History of Asthma FH Depression FH Diabetes FH Bi Polar Mother has tremor of hands. No other neurological disease in the family. Current rheumatological complaint: Polyarthralgias as above Denies: infection, fever and abdominal pain The following portions of the patient's history were reviewed and updated as appropriate an d is available elsewhere in the record: allergies, current medications, past family history, past medical history, past social history, past surgical history and problem list. Review of Systems Constitutional: Positive for chills, fatigue, fever and unexpected weight change. HENT: Positive for dental problem. Negative for mouth sores and sore throat. Eyes: Negative for pain and redness. Respiratory: Positive for shortness of breath. Negative for cough. Cardiovascular: Negative for chest pain. Gastrointestinal: Positive for constipation and diarrhea. Negative for abdominal pain and b lood in stool. Genitourinary: Negative for dysuria and hematuria. Musculoskeletal: Positive for arthralgias, joint swelling and myalgias. Skin: Positive for rash. Neurological: Negative for seizures, numbness and headaches. Psychiatric/Behavioral: The patient is not nervous/anxious. All other pertinent systems were reviewed and were negative Boris Brooks MD reviewed the above ROS. Social History Social History Marital status: Single Spouse name: N/A Number of children: N/A Years of education: N/A Occupational History Not on file. Social History Main Topics Smoking status: Former Smoker Smokeless tobacco: Never Used Alcohol use No Drug use: No Sexual activity: Not on file Other Topics Concern Not on file Social History Narrative No narrative on file Family History Problem Relation Age of Onset Asthma Other Depression Other Diabetes Other Arthritis Other Current Outpatient Prescriptions: Acetaminophen-Codeine (TYLENOL WITH CODEINE #3 PO), Take by mouth., Disp: , Rfl: ferrous sulfate, 65 FE, 324 (65 Fe) MG EC tablet, Take 65 mg of iron by mouth 3 (three ) times daily with meals., Disp: , Rfl: levothyroxine (SYNTHROID, LEVOTHROID) 137 MCG tablet, Take 137 mcg by mouth daily., Di sp: , Rfl: Multiple Vitamins-Minerals (MULTIVITAMIN WITH MINERALS) tablet, Take 1 tablet by mouth daily., Disp: , Rfl: Vitamin D, Cholecalciferol, 400 units CAPS, Take by mouth., Disp: , Rfl: Objective: BP 134/90 (BP Location: Left forearm, Patient Position: Sitting) | Pulse 80 | Temp 96.9 F (36.1 C) (Oral) | Ht 1.803 m (5' 11") | Wt 125.3 kg (276 lb 3.2 oz) | ? No | BMI 38.52 kg/m Physical Exam Constitutional: She is oriented to person, place, and time. She appears well-developed. HENT: Head: Normocephalic and atraumatic. Eyes: Pupils are equal, round, and reactive to light. Neck: Normal range of motion. No thyromegaly present. Cardiovascular: Normal rate and regular rhythm. No murmur heard. Pulmonary/Chest: Effort normal. She has no wheezes. She has no rales. Abdomina/Gl: She exhibits no distension. There is no tenderness. Musculoskeletal: She exhibits no edema, tenderness or deformity. Neurological: She is alert and oriented to person, place, and time. Skin: Skin is warm and dry. Rash (Actinic keratosis) noted. Scar of right knee surgery noted Psychiatric: She has a normal mood and affect. Most recent Health Maintenance Labs: Lab Results Component Value Date GLUF 105 (H) 07/12/2012 HGBA1C 6.2 (H) 07/12/2012 CREATININE 0.90 07/12/2012 EGFR >60 07/12/2012 NA 138 07/12/2012 K 3.8 07/12/2012 No results found for: ALT, AST, ALP, ALB, BILITOT, PSA No results found for: CHOL, LDL No results found for: HDL, TRIG No results found for: HGB, HCT, MCV, PLT, WBC No results found for: NEUTOPHILPCT, NEUTROABS , LYMPHSABS, MONOSABS, EOSABS No results found for: TSH, TSH3G, FREET4, T3FREE No results found for: HEPCAB, HEPBSAG, HEP BCAB, HEPIN3 No results found for: HIV1X2, CHLAMYDIATRA, CTAPTU, GONORRHOEAE, NGAPTU, TREP Arthralgia/Myalgia Labs: Basic Arthritis Labs No results found for: ESR, CRP, URICACID, FERRITIN Rheumatoid No results found for: RF LEANNA Panel(LEANNA,DSDNA,SM,Ribo,PROJECTION TECHNICIAN,SMRNP,SCL70,Jo1,Cent) No results found for: LABANTI, DNASEBAB, SMMPX, RIBMPX, RNPMPX, SMRMPX, CENTSCR, SCLMPX, MIMI 1MPX, CHRMPX Sjogren's(SSAab,SSBab) No results found for: SSAMPX, SSBMPX Reviewed chart notes, labs and imaging from other provider(s) since the last rheumatology o ffice visit. LEANNA positive, PROJECTION TECHNICIAN antibody positive Assessment and Plan: Visit Diagnoses and Associated Orders: The patient does not meet criteria for lupus or mixed connective tissue disease. Does not have synovitis/ puffy hands. No evidence of myositis and no Raynaud's. Does not meet any of the clinical criteria for lupus yet.Will order antibody panel once again. Provided infor teddy on Plaquenil and lupus manifestations. Patient stated that she does have nonphotosen sitive skin rash erupt at any time. I have instructed her to take pictures of the joint swe lling and the rash and call us so we can look at it more objectively as well. Will monitor longitudinally and will see if she develops rashes or any other of the seroneg ative spondyloarthropathies, since has unclear history of dactylitis. LEANNA could be false positive from thyroid or diabetes Discussed with the patient the significance of a positive LEANNA in the setting of rheumatic d iseases, including the probability of having a condition in light of the history and physica l exam of patient, indications for LEANNA testing. Discussed with patient the indications for d oing complete LEANNA panel testing. Also discussed conditions that can cause a true positive an d a false positive test result. Patient amenable for further laboratory investigation at thi s time. We will try to get prior hand x-ray results Fiorella was seen today for rheumatoid arthritis. Arthralgia, unspecified joint - LEANNA Ab titer by IFA; Future - SM autoantibody(anti-du antibody); Future - SM autoantibody(anti-du antibody); Future - Centromere B auto AB; Future - PROJECTION TECHNICIAN autoantibody; Future - DsDNA autoantibody; Future - LEANNA Ab titer by IFA; Future - Direct antiglobulin test; Future - PROJECTION TECHNICIAN autoantibody; Future - CPK; Future - TSH; Future - Vitamin D,25 hydroxy; Future - Anti cardiolipin Ab; Future - Beta 2 Glyprotein 1 IgG/IgM; Future - Lupus Inhibitor Screen; Future - RA titer; Future - Cyclic Peptide IGG; Future - C-reactive protein; Future - Sedimentation rate, automated; Future - Direct antiglobulin test - LEANNA Ab titer by IFA - SM autoantibody(anti-du antibody) - Cancel: SM autoantibody(anti-du antibody) - Centromere B auto AB - PROJECTION TECHNICIAN autoantibody - DsDNA autoantibody - Cancel: LEANNA Ab titer by IFA - Cancel: PROJECTION TECHNICIAN autoantibody - CPK - TSH - Vitamin D,25 hydroxy - Anti cardiolipin Ab - Beta 2 Glyprotein 1 IgG/IgM - Lupus Inhibitor Screen - RA titer - Cyclic Peptide IGG - C-reactive protein - Sedimentation rate, automated Risks and benefits of a treatment plan were explained to patient. Patient will follow up with their primary care physician in regards to non-rheumatological symptoms listed under review of systems. Patient was advised to contact our office if there are any change in their symptoms. TSH13.8 vitamin D level 13 I called and informed of the Vitamin D levels, which are low. I would advise patient to estrada e a high dose Vit D supplement 5000 units every day and PCP to recheck his levels. I have pr escribed this to their pharmacy. Thank you PCP to follow up on elevated TSH Boris Pennington MD Answers for HPI/ROS submitted by the patient on 01/25/2018 Joint problem FN subscore: : 0.33 Patient overall Assessment: 5 RAPID3 Score: : 7.08 in this encounter Plan of Treatment +--------+---------+ + + + | Date | Type | Specialty | Care Team | Description | +--------+---------+ + + + | 05/01/ | Office | Rheumatology | Sergio Fish, | | | 2017 | Visit | | [place] [address] | | | | | | [facility] | | | | | | [place] [address] | | | | | | [phone] | | | | | | | | +--------+---------+ + + + as of this encounter Procedures + +--------+ + + + | [...] | + +--------+ + + + | PROJECTION TECHNICIAN AUTOANTIBODY | Routin | 01/25/2018 | Arthralgia, [...] | + +--------+ + + + | ANTI-DU ANTIBODY | Routin | 01/25/2018 | Arthralgia, [...] section. 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 | | [...] + + + | [facility] | [address] | [place] [address] | [phone] | | LABORATORY | Blvd. | | [...] | [address] | [place] [address] | | + + + + + [...] + + + | [facility] | [address] | [place] [address] | [phone] | | LABORATORY | Blvd. | | [...] [facility] | [address] | [place] [address] | | + + + + + [...] + + | [facility] | [address] | [place] [address] | | + + + + + [...] | + + + + + | [facility] | [address] | [place] [address] | [phone] | | LABORATORY | Blvd. | | [...] | + + + + + | [facility] | [address] | [place] [address] | [phone] | | LABORATORY | Blvd. | | [...] + + + | [facility] | [address] | [place] [address] | [phone] | | LABORATORY | Blvd. | | [...] + | [facility] | [address] [facility] | [place] [address] | | + + + + + PROJECTION TECHNICIAN autoantibody (01/25/2018 2:46 PM) + + + + + | Component | Value | Ref Range | Performed At | + + + + + | PROJECTION TECHNICIAN AUTOANTIBODY | 5.0 (H)Comment: | AI | [facility] | | | Reference range: 0.0 to | | | | | 0.9 | | | + + + + + + + + + + | Performing | Address | City/State/Zipcode | Phone Number | | Organization | | | | + + + + + | [facility] | [address] [facility] | [place] [address] | | + + + + + [...] + | [facility] | [address] [facility] | [place] [address] | | + + + + + SM autoantibody(anti-du antibody) (01/25/2018 2:46 PM) + + + [...] + | [facility] | [address] [facility] | [place] [address] | | + + + + + [...] | + + + + + | [facility] | [address] [facility] | [place] [address] | | + + + + + Direct antiglobulin test (01/25/2018 2:44 PM) + + + + + | Component | Value | Ref Range | Performed At | + + + + + | ELISHA,POLY (DBS) | NEGATIVE | | [facility] | + + + + + + + | Specimen | + + | Blood | + + + + + + + | Performing | Address | City/State/Zipcode | Phone Number | | Organization | | | | + + + + + | [facility] | [address] | [place] [address] | | + + + + + in this encounter Visit Diagnoses + + | Diagnosis | + + | Arthralgia, unspecified joint - Primary | + +
--- OUTSIDE RECORDS SUMMARY | ~2018-03-25 | XMS | Clinical Summary ---
Demographics + + + | Address | [address] | | | [place] [address] | + + + | Home Phone | | + + + | Preferred Language | Unknown | + + + | Marital Status | Unknown | + + + | Taoist Affiliation | Unknown | + + + | Race | Unknown | + + + | Ethnic Group | Unknown | + + + Author + + + | Author | [facility] | | | and [facility] | + + + | Organization | [facility] | | | and [place] | + + + | Address | Unknown | + + + | Phone | Unavailable | + + + Care Team Providers + +------+ + | Care Field Handyman Name | Role | Phone | + [...]
--- OUTSIDE RECORDS SUMMARY | ~2018-03-25 | XMS | Encounter Summary ---
Demographics + + + | Address | [address] | | | [place] [address] | + + + | Home Phone | | + + + | Preferred Language | Unknown | + + + | Marital Status | Single | + + + | Hinduism Affiliation | Unknown | + + + | Race | Unknown | + + + | Ethnic Group | Unknown | + + + Author + + + | Author | [facility] [address] | + + + | Organization | [facility] | + + + | Address | Unknown | + + + | Phone | Unavailable | + + + Support + + +---------+ + | Name | Relationship | Address | Phone | + + +---------+ + | Maggie Mckenna | ECON | Unknown | | + + +---------+ + Care Team Providers + +------+ + | Care Shredder/Granulator Operator Name | Role | Phone | + +------+ + | Miguelangel Good | PCP | | + +------+ + Encounter Details +--------+ + + + + | Date | Type | Department | Care Team | Description | +--------+ + + + + | 02/03/ | Telephone | [facility] | Tanja Jung, | | | 2017 | | Rheumatology [address] | [address] | | | | | [address] | | | | | | [place] [address] | | | | | | [phone] | | | +--------+ + + + [...] | 2017 | Visit | | [place] [address] | | | | | | [facility] | | | | | | [place] [address] | | | | | | [phone] | | | | | | | | +--------+---------+ + + + as of this encounter Visit Diagnoses Not on filein this encounter"
--- OUTSIDE RECORDS SUMMARY | ~2018-03-25 | XMS | Encounter Summary ---
Demographics + + + | Address | [address] | | | [place] [address] | + + + | Home Phone | | + + + | Preferred Language | Unknown | + + + | Marital Status | Single | + + + | Buddhism Affiliation | Unknown | + + + | Race | Unknown | + + + | Ethnic Group | Unknown | + + + Author + + + | Author | [facility] | + + + | Organization | [facility] | + + + | Address | Unknown | + + + | Phone | Unavailable | + + + Support + + +---------+ + | Name | Relationship | Address | Phone | + + +---------+ + | Maggie Mckenna | ECON | Unknown | | + + +---------+ + Care Team Providers + +------+ + | Care Electrical Experimental Mechanic Name | Role | Phone | + +------+ + | Miguelangel Good DIRECTOR SANITATION BUREAU | PCP | | + +------+ + [...] | | | | | specified | DIRECTOR SANITATION BUREAU [address] | [address] | | | | | abnormal | [address], | [address] | | | | | immunologica | [address] | [place] | | | | | l findings | [place], | [address] | | | | | in serum | [place] [address] | Phone: | | | | | | Phone: | [phone] | | | | | | [phone] | Fax: | | | | | | Fax: | [phone] | | | | | | [phone] | | +--------+--------+ + + + + Encounter Details +--------+---------+ + + + | Date | Type | Department | Care Team | Description | +--------+---------+ + + + | 01/25/ | Office | [facility] | Boris Pennington MD | Arthralgia, | | 2018 | Visit | Rheumatology [address] | [address] | unspecified joint | | | | [address] | [place] [address] | (Primary Dx) | | | | [place] [address] | [phone] | | | | | [phone] | | | +--------+---------+ + + + [...] you can send us a message/request using [employer] or call our [facility] deniz at [phone], Tanja GLASER extension [phone]. If you are unable to reach a [...] You can also review your results on RoomReve[facility]. If you are experiencing an emergency, please [...] Pre gnant women can have miscarriages. The [employer] has a list of [...] antibodies that show an immune system problem: lobd-hadgai-chqcrb DNA (called ant i-dsDNA), anti-Du (referred to [...] serious problems, you should see y our saddle cutter often. This lets your doctor keep track of your disease and change your t reatment as needed. If you do not live near a saddle cutter, you may need to have your [facility] doctor manage your lupus with the help of a saddle cutter. The role of a saddle cutter in the treatment of lupus Lupus is a complex disease. As experts in diagnosing and treating autoimmune diseases such as lupus, rheumatologists can best advise patients about treatment options. For more information The [employer] has compiled this list to give you a starting point fo r your own additional research. The ACR does not endorse or maintain these websites, and is not responsible for any information or claims provided on them. It is always best to talk wi th your saddle cutter for more information and before making any decisions about your care. The Arthritis Foundation www.arthritis.org The ACR's Lupus Initiative www.thelupusinitiative.org The Lupus Foundation of [place] www.lupus.org Lupus Research [place] www.LupusResearchInstitute.org National [place] of Arthritis and Musculoskeletal and Skin Diseases www.niams.nih.gov/Health_Info/Lupus/default.asp Updated August 2012 Written by Denise Hewitt MD, and Jaret Garzon MD, and reviewed by the [employer] Communications and Marketing Committee. This patient fact sheet is provided for general education only. Individuals should consult a qualified health care provider for professional medical advice, diagnosis and treatment of a medical or health condition 2012 [employer] Hydroxychloroquine (Plaquenil) Description Hydroxychloroquine [...] of the medications you are taking, including dyuh-jqd-suvazqn drugs and natural remedies. Information to Discuss with Your Primary Care Physician and other Specialists Be sure to notify your other physicians that you are taking this drug. This drug does not h ave a strong effect on the immune system, so vaccines recommended by other physicians are ge nerally acceptable. Be sure to notify your senior sales compensation analyst that you are taking this medicine so you can have the correct visual screening tests. For more information The [employer] has compiled this list to give you a starting point fo r your own additional research. The ACR does not endorse or maintain these Web sites, and is not responsible for any information or claims provided on them. It is always best to talk w ith your saddle cutter for more information and before making any decisions about your care . National Institutes of Health: Medline Plus www.nlm.nih.gov/medlineplus/druginfo/meds/b457319.html ACR Position Statement on screening for hydroxychloroquine retinopathy www.rheumatology.org/practice/clinical/position/hydroxy.pdf Lupus Foundation of [place] on Anti-Malarials in Lupus www.lupus.org/webmodules/webarticlesnet/templates/new_aboutaffects.aspx?articleid=87&zoneid =17 Updated October 2011 Written by Tim Montero MD, and reviewed by the [employer] Communi cations and Marketing Committee. This patient fact sheet is provided for general education only. Individuals should consult a qualified health care provider for professional medical advice, diagnosis and treatment of a medical or health condition. 2012 [employer] in this encounter Progress [...] a positive LEANNA in the setting of FIREARMS EXPERT anti bodies. Patient says this has not [...] Rheumatoid No results found for: RF LEANNA Panel(LEANNA,DSDNA,SM,Ribo,FIREARMS EXPERT,SMRNP,SCL70,Jo1,Cent) No results found for: LABANTI, DNASEBAB, SMMPX, RIBMPX, RNPMPX, SMRMPX, CENTSCR, SCLMPX, MIMI 1MPX, CHRMPX Sjogren's(SSAab,SSBab) No results found for: SSAMPX, SSBMPX Reviewed chart notes, labs and imaging from other provider(s) since the last rheumatology o ffice visit. LEANNA positive, FIREARMS EXPERT antibody positive Assessment and Plan: Visit Diagnoses [...] - Centromere B auto AB; Future - FIREARMS EXPERT autoantibody; Future - DsDNA autoantibody; Future - LEANNA Ab titer by IFA; Future - Direct antiglobulin test; Future - FIREARMS EXPERT autoantibody; Future - CPK; Future - TSH; [...] antibody) - Centromere B auto AB - FIREARMS EXPERT autoantibody - DsDNA autoantibody - Cancel: LEANNA Ab titer by IFA - Cancel: FIREARMS EXPERT autoantibody - CPK - TSH - Vitamin [...] | 2017 | Visit | | [address] [address] | | | | | | [facility] | | | | | | [place] [address] | | | | | | [phone] | | | | | | | [...] | + +--------+ + + + | FIREARMS EXPERT AUTOANTIBODY | Routin | 01/25/2018 | Arthralgia, [...] + | 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 | [place] [address] | [phone] | | LABORATORY | Blvd. | | [...] + + + | [facility] | [address] [facility] | [place] [address] | [phone] | | LABORATORY | Blvd. | | [...] | [address] | [place] [address] | | + + + + + [...] + + + | [facility] | [address] | [place] [address] | [phone] | | LABORATORY | Blvd. | | [...] | [address] | [place] [address] | | + + + + + [...] | [address] | [place] [address] | | + + + + + [...] | + + + + + | [facility] | [address] [facility] | [place] [address] | [phone] | | LABORATORY | Blvd. | | [...] | + + + + + | [facility] | [address] | [place] [address] | [phone] | | LABORATORY | Blvd. | | [...] + + + | [facility] | [address] [facility] | [place] [address] | [phone] | | LABORATORY | Blvd. | | [...] + | [facility] | [address] [facility] | [place] [address] | | + + + + + FIREARMS EXPERT autoantibody (01/25/2018 2:46 PM) + + + + + | Component | Value | Ref Range | Performed At | + + + + + | FIREARMS EXPERT AUTOANTIBODY | 5.0 (H)Comment: | AI | [facility] | | | Reference range: 0.0 to | | | | | 0.9 | | | + + + + + + + + + + | Performing | Address | City/State/Zipcode | Phone Number | | Organization | | | | + + + + + | [facility] | [address] [facility] | [place] [address] | | + + + + + [...] + | [facility] | [address] [facility] | [place] [address] | | + + + + + [...] + | [facility] | [address] [facility] | [place] [address] | | + + + + + [...] | + + + + + | [facility] | [address] [facility] | [place] [address] | | + + + + + Direct antiglobulin test (01/25/2018 2:44 PM) + + + + + | Component | Value | Ref Range | Performed At | + + + + + | ELISHA,POLY (DBS) | NEGATIVE | | [facility] | + + + + + + + | Specimen | + + | Blood | + + + + + + + | Performing | Address | City/State/Zipcode | Phone Number | | Organization | | | | + + + + + | [facility] | [address] | [place] [address] | | + + + + + in this encounter Visit Diagnoses + + | Diagnosis | + + | Arthralgia, unspecified joint - Primary | + +
--- OUTSIDE RECORDS SUMMARY | ~2018-03-25 | XMS | Clinical Summary ---
Demographics + + + | Address | [address] | | | [place] [address] | + + + | Home Phone | | + + + | Preferred Language | Unknown | + + + | Marital Status | Single | + + + | Jew Affiliation | Unknown | + + + | Race | Unknown | + + + | Ethnic Group | Unknown | + + + Author + + + | Author | [facility] | + + + | Organization | [facility] | + + + | Address | Unknown | + + + | Phone | Unavailable | + + + Support + + +---------+ + | Name | Relationship | Address | Phone | + + +---------+ + | Maggie Mckenna | ECON | Unknown | | + + +---------+ + Care Team Providers + +------+ + | Care Breeder Hen Service Technician Name | Role | Phone | + [...] | | | 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 | | +--------+ + + + + [...] | 2017 | Visit | | [address] | | | | | [facility] | | | | | | [place] [address] | | | | | | [phone] | | | | | | | [...] | + +--------+ + + + | SAFETY ANALYST AUTOANTIBODY | Routin | 01/25/2018 | Arthralgia, [...] + | 1 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 | NIYComment: Testing Not | s | [...] | [address] | [place] [address] | | + + + + + SAFETY ANALYST autoantibody (01/25/2018 2:46 PM) + + + + + | Component | Value | Ref Range | Performed At | + + + + + | SAFETY ANALYST AUTOANTIBODY | 5.0 (H)Comment: | AI | [facility] | | | Reference range: 0.0 to | | | | | 0.9 | | | + + + + + + + + + + | Performing | Address | City/State/Zipcode | Phone Number | | Organization | | | | + + + + + | [facility] | [address] | [place] [address] | | + + + + + [...] + | [facility] | [address] [facility] | [place] [address] | | + + + + + [...] | + + + + + | [facility] | [address] | [place] [address] | | + + + + + [...] | [facility] | [address] | [place] [address] | | + + + + + [...] + | [facility] | [address] [facility] | [place] [address] | | + + + + + [...] LAB[facility]ORY | [address] | [place] [address] | | + + + + + [...] | [facility] | [address] | [place] [address] | | + + + + + [...] | [address] [facility] | [place] [address] | [phone] | | LABORATORY | [place] | | [...] | [address] | [place] [address] | | + + + + + [...] | [address] | [place] [address] | [phone] | | LABORATORY | [address]vd[address] | | [...] + + + + | [facility] | [address] | [place] [address] | [phone] | | LABORATORY | [address]vd[address] | | [...] + + + + | [facility] | [address] | [place] [address] | [phone] | | LABORATORY | [address]vd[address] | | [...] + + + | [facility] | [address] | [place] [address] | [phone] | | LABORATORY | Blvd[address] | | [...] | + + + + + | [facility] | [address] | [place] [address] | [phone] | | LABORATORY | Blvd. | | [...] | + + + + + | [facility] | [address] | [place] [address] | | + + + + + from Last 3 Months Insurance +---------+--------+ +------+-------+ + | Payer | Benefi | Subscriber | Type | Phone | Address | | | t Plan | ID | | | | | | / | | | | | | | Group | | | | | +---------+--------+ +------+-------+ + | [employer] | PREMER | [id number] | | | [address] [address] | | | A | [address] | | | [place], [place] | | | [employer] | | | | [address] | | | [place] | | | [...] | | | [place] | | | [id number] | [place] [phone] | + +--------+ +--------+ + +
[2018-03-25] MEDS ORDERED: LEVOTHYROXINE150 MCG PO (10:13)
== END 2018-03-25 11:10 | disposition home or self-care (01) ==
LOC: ED 09:51
DX: S63.501A Unspecified sprain of right wrist, initial encounter (principal); V19.9XXA Pedal cyclist (driver) (passenger) injured in unspecified traffic accident, initial encounter; Z88.0 Allergy status to penicillin; Z88.2 Allergy status to sulfonamides; Z79.899 Other long term (current) drug therapy
CPT/HCPCS: 73110; 99283